=== PATIENT | male | born 1955 | race Caucasian/White ===

== ENCOUNTER 2017-10-04 00:58 | Inpatient (IN) ==
[2017-10-04] MEDS ORDERED: TISSUE ADHESIVE 1 EACH APPLICATOR TOP ONE (01:22)
[2017-10-04] MEDS ORDERED: DIPH/TET/ACEL PERT BOOSTER VACCINE 0.5 ML VIAL IM ONE (01:58)
[2017-10-04] MEDS ORDERED: ceFAZolin 1,000 MG VIAL IM ONE (01:59)
[2017-10-04] MEDS ORDERED: HALOPERIDOL 5 MG/ML AMP ONE ×2 (06:04)
[2017-10-04] MEDS ORDERED: GLUCAGON 1 MG VIAL ONE (06:06)
[2017-10-04] MEDS ORDERED: DEXTROSE 50% 25 GM/50 ML SYRINGE IV ONE (06:08)
[2017-10-04 06:47] LABS: INR 1.3; PT Patient Result 13.1 SECS
[2017-10-04] MEDS ORDERED: ETOMIDATE 20 MG/10 ML VIAL IV ONE (06:47)
[2017-10-04] MEDS ORDERED: VECURONIUM 10 MG VIAL IV ONE (06:47)
[2017-10-04 06:50] LABS: Ammonia 57 UMOL/L (11-32)
[2017-10-04 06:54] LABS: Lactic Acid 2.9 MMOL/L (0.4-2.0)
[2017-10-04 06:57] LABS: Alanine Aminotransferase 16 U/L (16-61); Albumin 3.3 G/DL (3.4-5.0); Alkaline Phosphatase 30 U/L (45-117); Aspartate Amino Transferase 23 U/L (0-37); Blood Urea Nitrogen 27 MG/DL (7-18); Calcium 9.2 MG/DL (8.5-10.1); Osmolality,Calculated 273.8 MOS/KG (273-304); Potassium 5.5 MMOL/L (3.5-5.1); Sodium 137 MMOL/L (136-145); Total Protein 7.3 G/DL (6.4-8.3)
[2017-10-04 06:59] LABS: Glucose 28 MG/DL (74-106)
[2017-10-04 07:03] LABS: Basophils # 0.1 10*3/uL (0.0-0.2); Basophils % 0.5 % (0.0-0.8); Eosinophils # 0.1 10*3/uL (0.0-0.87); Eosinophils % 0.8 % (0.00-10.9); Hematocrit 41.2 VOL% (42.0-52.0); Hemoglobin 13.5 GM/DL (14.0-18.0); Immature Granulocytes % 1.5 %; Immature Granulocytes Absolute 0.18 #; Lymphocytes # 0.7 10*3/uL (1.4-4.0); Lymphocytes % 6.1 % (21.2-54.2); Mean Corpuscular HGB Conc 32.8 GM/DL (32-36); Mean Corpuscular Hemoglobin 28 PG (27-34); Mean Corpuscular Volume 84.4 FL (87-102); Mean Platelet Volume 9.6 FL (9.6-12.0); Monocytes # 1.3 10*3/uL (0.11-0.8); Neutrophils # 9.7 10*3/uL (1.4-7.4); Neutrophils % 80.1 % (38.7-73.9); Platelet Count 384 T/CUMM (130-400); Red Blood Count 4.88 MC/CUMM (3.8-5.5); Red Cell Distribution Width 14.7 % (9.3-17.3); White Blood Count 12.1 T/CUMM (4-12)
[2017-10-04] MEDS ORDERED: PROPOFOL 1,000 MG/100 ML BOTTLE IV ONE (07:21)
[2017-10-04] MEDS ORDERED: ROCURONIUM 100 MG/10 ML VIAL IV ONE (07:22)
[2017-10-04] MEDS ORDERED: SODIUM CHLORIDE 0.9% 500 ML IV STA (07:25)
[2017-10-04] MEDS ORDERED: ROCURONIUM 100 MG/10 ML VIAL IV STA ×2 (07:25→11:38)
[2017-10-04] MEDS: PROPOFOL 1,000 MG/100 ML BOTTLE IV SCH (07:28)
[2017-10-04 07:35] LABS: Allen Test Positive; Pt O2 Delivery Device Ventilator
[2017-10-04 07:37] LABS: ABG Base Excess -1.2 MMOL/L (-2.5-2.5); ABG HCO3 23.4 MMOL/L (20-26); ABG PCO2 53.9 MM HG (35-48); ABG PH 7.298 (7.35-7.45); ABG TCO2 23.2 MMOL/L (23-27)
[2017-10-04 08:21] LABS: Apearance,Urine Slightly Hazy (Clear); Bilirubin,Urine Negative (Negative); Blood, Urine Negative (Negative); Glucose,Urine (UA) 50 mg/dL (Negative); Ketones,Urine Negative (Negative); Mucus,Urine Occasional /LPF (Occasional); Nitrite,Urine Negative (Negative); Protein,Urine 100 MG/DL; RBC,Urine 1 /HPF (0-4); Squamous Epithelial Cell,Urine Occasional /HPF (0-10); Urine Color Yellow (Yellow); Urine Specific Gravity 1.016 (1.001-1.035); WBC,Urine 1 /HPF (0-6)
[2017-10-04 08:33] LABS: Prolactin 64.3 NG/ML
[2017-10-04] MEDS ORDERED: SODIUM CHLORIDE 0.9% 1,000 ML IV STA (10:22)
[2017-10-04] MEDS ORDERED: ONDANSETRON 4 MG/2 ML VIAL IV PRN (10:53)
[2017-10-04] MEDS ORDERED: CARVEDILOL 25 MG TABLET PO SCH (11:00)
[2017-10-04] MEDS ORDERED: SODIUM CHLORIDE 0.9% 1,000 ML IV SCH (11:00)
[2017-10-04] MEDS ORDERED: GLUCAGON 1 MG VIAL IM PRN (11:20)
[2017-10-04] MEDS ORDERED: fentaNYL 100 MCG/2 ML VIAL ONE (11:37)
[2017-10-04] MEDS ORDERED: fentaNYL 100 MCG/2 ML VIAL IV STA (11:38)
[2017-10-04] MEDS: ISOSORBIDE MONONITRATE 30 MG TABLET PO SCH (12:41)
[2017-10-04] MEDS: INSULIN LISPRO 100 UNIT/ML SUBCUT SCH ×4 (13:08→23:57)
[2017-10-04] MEDS: PANTOPRAZOLE 40 MG VIAL IV SCH (13:28)
[2017-10-04] MEDS: SPIRONOLACTONE 25 MG TABLET PO SCH (13:28)
[2017-10-04] MEDS: PHENYLEPHRINE DRIP 40 MG/250 ML PREMIX IV PRN ×2 (14:13→21:10)
[2017-10-04] MEDS ORDERED: MIDAZOLAM 100 MG in SODIUM CHLORIDE 0.9% 80 ML IV PRN (14:34)
[2017-10-04 14:45] LABS: ABG Base Excess 4.8 MMOL/L (-2.5-2.5); ABG HCO3 28.8 MMOL/L (20-26); ABG Oxygen Saturation 98.1 % (95-100); ABG PCO2 44.9 MM HG (35-48); ABG PH 7.431 (7.35-7.45); ABG TCO2 26.5 MMOL/L (23-27)
[2017-10-04] MEDS: METHYLDOPA 250 MG TABLET PO SCH ×2 (15:15→20:49)
[2017-10-04 15:32] LABS: Barbiturates Screen,Urine Negative (Negative); Benzodiazepines Screen,Urine Negative (Negative); Cannabinoid Screen,Urine Negative (Negative); Opiate Screen,Urine Negative (Negative); Phencyclidine Screen,Urine Negative (Negative)
[2017-10-04] MEDS: DEXTROSE 50% 25 GM/50 ML VIAL IV PRN ×2 (16:45→23:58)
[2017-10-04] MEDS: DEXTROSE 5% NACL 0.9% 1,000 ML IV SCH (16:58)
[2017-10-04] MEDS: FUROSEMIDE 20 MG TABLET PO SCH (17:16)
[2017-10-04] MEDS: ASPIRIN CHEW 81 MG TABLET PO SCH (18:54)
[2017-10-04] MEDS ORDERED: ENOXAPARIN 40 MG/0.4 ML SYRINGE SUBCUT SCH (21:00)
[2017-10-05] MEDS: DEXTROSE 5% NACL 0.9% 1,000 ML IV SCH ×4 (00:57→20:50)
[2017-10-05] MEDS: PROPOFOL 1,000 MG/100 ML BOTTLE IV SCH ×4 (01:58→23:10)
[2017-10-05 03:53] LABS: Basophils # 0.1 10*3/uL (0.0-0.2); Basophils % 0.5 % (0.0-0.8); Eosinophils # 0.1 10*3/uL (0.0-0.87); Hematocrit 36.5 VOL% (42.0-52.0); Hemoglobin 11.6 GM/DL (14.0-18.0); Immature Granulocytes % 0.5 %; Immature Granulocytes Absolute 0.06 #; Lymphocytes # 1.3 10*3/uL (1.4-4.0); Lymphocytes % 10.6 % (21.2-54.2); Mean Corpuscular HGB Conc 31.8 GM/DL (32-36); Mean Corpuscular Hemoglobin 27 PG (27-34); Mean Corpuscular Volume 86.1 FL (87-102); Mean Platelet Volume 9.5 FL (9.6-12.0); Monocytes # 1.4 10*3/uL (0.11-0.8); Neutrophils # 9.1 10*3/uL (1.4-7.4); Neutrophils % 75.4 % (38.7-73.9); Platelet Count 375 T/CUMM (130-400); Red Blood Count 4.24 MC/CUMM (3.8-5.5)
[2017-10-05 04:14] LABS: Albumin 2.9 G/DL (3.4-5.0); Bilirubin,Total 0.9 MG/DL (0.2-1.0); Calcium 7.9 MG/DL (8.5-10.1); Osmolality,Calculated 286.1 MOS/KG (273-304); Potassium 3.9 MMOL/L (3.5-5.1); Risk Ratio 4.25; Thyroid Stimulating Hormone 6.98 uIU/ml (0.358-3.74); Total Protein 5.5 G/DL (6.4-8.3); VLDL CHOLESTEROL 28.2 MG/DL
[2017-10-05 04:39] LABS: ABG Base Excess 3.2 MMOL/L (-2.5-2.5); ABG HCO3 27.3 MMOL/L (20-26); ABG Oxygen Saturation 99.3 % (95-100); ABG PCO2 39.8 MM HG (35-48); ABG PH 7.446 (7.35-7.45); ABG TCO2 24.1 MMOL/L (23-27); Allen Test Positive; Pt O2 Delivery Device Ventilator
[2017-10-05] MEDS: INSULIN LISPRO 100 UNIT/ML SUBCUT SCH ×5 (05:57→20:50)
[2017-10-05] MEDS: PANTOPRAZOLE 40 MG VIAL IV SCH (08:53)
[2017-10-05] MEDS: SPIRONOLACTONE 25 MG TABLET PO SCH (08:53)
[2017-10-05] MEDS: ASPIRIN CHEW 81 MG TABLET PO SCH (08:53)
[2017-10-05] MEDS: METHYLDOPA 250 MG TABLET PO SCH ×3 (08:53→20:51)
[2017-10-05] MEDS: methylPREDNISolone SOD SUC 40 MG/1 ML VIAL IV SCH ×2 (09:02→20:50)
[2017-10-05] MEDS: FUROSEMIDE 20 MG TABLET PO SCH (09:02)
[2017-10-05] MEDS: ISOSORBIDE MONONITRATE 30 MG TABLET PO SCH (09:03)
[2017-10-05] MEDS: FUROSEMIDE 40 MG/4 ML VIAL IV SCH (09:09)
[2017-10-05] MEDS: PHENYLEPHRINE DRIP 40 MG/250 ML PREMIX IV PRN (13:49)
[2017-10-05] MEDS ORDERED: ACETAMINOPHEN 325 MG TABLET PO PRN (13:53)
[2017-10-05] MEDS ORDERED: ACETAMINOPHEN 325 MG TABLET ONE (13:55)
[2017-10-05] MEDS: SKIN HEALING OINT (AQUAPHOR) 50 GM TUBE TOP PRN (14:15)
[2017-10-05] MEDS ORDERED: POTASSIUM CHLORIDE RIDER 20 MEQ in PREMIX 1 EACH IV PRN (17:19)
[2017-10-05] MEDS ORDERED: MAGNESIUM SULF RIDER 4 GM in PREMIX 1 EACH IV PRN (17:20)
[2017-10-05] MEDS ORDERED: MAGNESIUM SULF RIDER 2 GM in PREMIX 1 EACH IV PRN (17:20)
[2017-10-05] MEDS: APIXABAN 5 MG TABLET PO SCH ×2 (17:36→20:50)
[2017-10-05 18:09] LABS: Calcium 7.9 MG/DL (8.5-10.1); Osmolality,Calculated 293.1 MOS/KG (273-304); Potassium 3.9 MMOL/L (3.5-5.1)
[2017-10-06] MEDS: INSULIN LISPRO 100 UNIT/ML SUBCUT SCH ×6 (00:40→20:19)
[2017-10-06] MEDS: DEXTROSE 5% NACL 0.9% 1,000 ML IV SCH ×2 (02:22→12:54)
[2017-10-06 04:35] LABS: ABG Base Excess 0.6 MMOL/L (-2.5-2.5); ABG Oxygen Saturation 98.6 % (95-100); ABG PCO2 34.3 MM HG (35-48); ABG PH 7.462 (7.35-7.45); ABG PO2 140.8 MM HG (80-95)
[2017-10-06 05:03] LABS: Basophils % 0.1 % (0.0-0.8); Hematocrit 38.9 VOL% (42.0-52.0); Hemoglobin 12.1 GM/DL (14.0-18.0); Immature Granulocytes % 0.6 %; Immature Granulocytes Absolute 0.05 #; Lymphocytes # 0.7 10*3/uL (1.4-4.0); Lymphocytes % 8.2 % (21.2-54.2); Mean Corpuscular HGB Conc 31.1 GM/DL (32-36); Mean Corpuscular Hemoglobin 27 PG (27-34); Mean Corpuscular Volume 86.6 FL (87-102); Mean Platelet Volume 9.4 FL (9.6-12.0); Monocytes # 0.6 10*3/uL (0.11-0.8); Monocytes % 7.2 % (1.7-12.7); Neutrophils # 6.9 10*3/uL (1.4-7.4); Neutrophils % 83.9 % (38.7-73.9); Platelet Count 254 T/CUMM (130-400); Red Blood Count 4.49 MC/CUMM (3.8-5.5); White Blood Count 8.3 T/CUMM (4-12)
[2017-10-06] MEDS: PROPOFOL 1,000 MG/100 ML BOTTLE IV SCH ×3 (05:20→18:55)
[2017-10-06 05:55] LABS: Calcium 8.5 MG/DL (8.5-10.1)
[2017-10-06 05:56] LABS: Potassium 3.9 MMOL/L (3.5-5.1)
[2017-10-06] MEDS: PHENYLEPHRINE DRIP 40 MG/250 ML PREMIX IV PRN (06:20)
[2017-10-06] MEDS: POTASSIUM CHLORIDE RIDER 10 MEQ in PREMIX 1 EACH IV PRN ×2 (07:50→08:53)
[2017-10-06] MEDS ORDERED: FUROSEMIDE 20 MG/2 ML VIAL ONE (08:08)
[2017-10-06] MEDS: methylPREDNISolone SOD SUC 40 MG/1 ML VIAL IV SCH ×2 (08:14→20:19)
[2017-10-06] MEDS: PANTOPRAZOLE 40 MG VIAL IV SCH (08:14)
[2017-10-06] MEDS: ASPIRIN CHEW 81 MG TABLET PO SCH (08:15)
[2017-10-06] MEDS: APIXABAN 5 MG TABLET PO SCH ×2 (08:15→20:19)
[2017-10-06] MEDS: FUROSEMIDE 40 MG/4 ML VIAL IV SCH (08:15)
[2017-10-06] MEDS: SKIN HEALING OINT (AQUAPHOR) 50 GM TUBE TOP PRN (08:15)
[2017-10-06] MEDS: SPIRONOLACTONE 25 MG TABLET PO SCH (08:15)
[2017-10-06] MEDS: METHYLDOPA 250 MG TABLET PO SCH ×3 (08:15→22:24)
[2017-10-07] MEDS: INSULIN LISPRO 100 UNIT/ML SUBCUT SCH ×6 (00:34→19:56)
[2017-10-07] MEDS: PROPOFOL 1,000 MG/100 ML BOTTLE IV SCH ×5 (01:35→23:50)
[2017-10-07 03:31] LABS: ABG Base Excess 2.3 MMOL/L (-2.5-2.5); ABG HCO3 26.3 MMOL/L (20-26); ABG Oxygen Saturation 94.4 % (95-100); ABG PCO2 38.3 MM HG (35-48); ABG PH 7.445 (7.35-7.45); ABG PO2 70.4 MM HG (80-95); ABG TCO2 23.2 MMOL/L (23-27)
[2017-10-07 04:41] LABS: Hematocrit 36.6 VOL% (42.0-52.0); Hemoglobin 11.8 GM/DL (14.0-18.0); Immature Granulocytes % 0.9 %; Immature Granulocytes Absolute 0.08 #; Lymphocytes # 0.6 10*3/uL (1.4-4.0); Lymphocytes % 6.8 % (21.2-54.2); Mean Corpuscular HGB Conc 32.2 GM/DL (32-36); Mean Corpuscular Hemoglobin 27 PG (27-34); Mean Corpuscular Volume 84.3 FL (87-102); Mean Platelet Volume 9.7 FL (9.6-12.0); Monocytes # 0.4 10*3/uL (0.11-0.8); Monocytes % 4.9 % (1.7-12.7); Neutrophils # 7.8 10*3/uL (1.4-7.4); Neutrophils % 87.4 % (38.7-73.9); Platelet Count 275 T/CUMM (130-400); Red Blood Count 4.34 MC/CUMM (3.8-5.5); Red Cell Distribution Width 15.1 % (9.3-17.3)
[2017-10-07 05:19] LABS: Calcium 8.8 MG/DL (8.5-10.1); Potassium 4.8 MMOL/L (3.5-5.1)
[2017-10-07 05:48] LABS: Prealbumin 11.9 MG/DL (20-40)
[2017-10-07] MEDS: PANTOPRAZOLE 40 MG VIAL IV SCH (08:44)
[2017-10-07] MEDS: FUROSEMIDE 40 MG/4 ML VIAL IV SCH ×2 (08:44→16:11)
[2017-10-07] MEDS: methylPREDNISolone SOD SUC 40 MG/1 ML VIAL IV SCH ×2 (08:44→20:20)
[2017-10-07] MEDS: APIXABAN 5 MG TABLET PO SCH ×2 (08:45→20:20)
[2017-10-07] MEDS: METHYLDOPA 250 MG TABLET PO SCH ×3 (08:45→20:20)
[2017-10-07] MEDS: SPIRONOLACTONE 25 MG TABLET PO SCH (08:45)
[2017-10-07] MEDS: ASPIRIN CHEW 81 MG TABLET PO SCH (08:45)
[2017-10-07] MEDS: SKIN HEALING OINT (AQUAPHOR) 50 GM TUBE TOP PRN (08:52)
[2017-10-07] MEDS: OXACILLIN 500 MG in SODIUM CHLORIDE 0.9% 100 ML IV SCH ×2 (17:26→22:21)
[2017-10-08] MEDS: INSULIN LISPRO 100 UNIT/ML SUBCUT SCH ×7 (00:45→23:53)
[2017-10-08 03:16] LABS: ABG Base Excess 6.5 MMOL/L (-2.5-2.5); ABG HCO3 29.6 MMOL/L (20-26); ABG PCO2 37.2 MM HG (35-48); ABG PH 7.519 (7.35-7.45); ABG PO2 172.2 MM HG (80-95); ABG TCO2 30.8 MMOL/L (23-27); Allen Test Positive; Pt O2 Delivery Device Ventilator
[2017-10-08] MEDS: PROPOFOL 1,000 MG/100 ML BOTTLE IV SCH ×4 (04:27→23:15)
[2017-10-08] MEDS: OXACILLIN 500 MG in SODIUM CHLORIDE 0.9% 100 ML IV SCH ×4 (04:29→23:52)
[2017-10-08 06:00] LABS: Basophils % 0.2 % (0.0-0.8); Hematocrit 36.6 VOL% (42.0-52.0); Hemoglobin 11.9 GM/DL (14.0-18.0); Immature Granulocytes % 0.9 %; Immature Granulocytes Absolute 0.07 #; Lymphocytes # 0.9 10*3/uL (1.4-4.0); Mean Corpuscular HGB Conc 32.5 GM/DL (32-36); Mean Corpuscular Hemoglobin 27 PG (27-34); Mean Corpuscular Volume 83.6 FL (87-102); Mean Platelet Volume 9.6 FL (9.6-12.0); Monocytes # 0.5 10*3/uL (0.11-0.8); Monocytes % 6.2 % (1.7-12.7); Neutrophils # 6.7 10*3/uL (1.4-7.4); Neutrophils % 81.7 % (38.7-73.9); Platelet Count 279 T/CUMM (130-400); Red Blood Count 4.38 MC/CUMM (3.8-5.5); White Blood Count 8.2 T/CUMM (4-12)
[2017-10-08 06:29] LABS: Albumin 2.8 G/DL (3.4-5.0); Bilirubin,Total 0.9 MG/DL (0.2-1.0); Calcium 8.7 MG/DL (8.5-10.1); Osmolality,Calculated 296.1 MOS/KG (273-304); Potassium 4.3 MMOL/L (3.5-5.1); Total Protein 6.1 G/DL (6.4-8.3)
[2017-10-08] MEDS: PANTOPRAZOLE 40 MG VIAL IV SCH (08:45)
[2017-10-08] MEDS: methylPREDNISolone SOD SUC 40 MG/1 ML VIAL IV SCH ×2 (08:45→21:58)
[2017-10-08] MEDS: FUROSEMIDE 40 MG/4 ML VIAL IV SCH ×2 (08:45→15:49)
[2017-10-08] MEDS: APIXABAN 5 MG TABLET PO SCH ×2 (08:46→21:57)
[2017-10-08] MEDS: SPIRONOLACTONE 25 MG TABLET PO SCH (08:46)
[2017-10-08] MEDS: METHYLDOPA 250 MG TABLET PO SCH ×3 (08:46→21:57)
[2017-10-08] MEDS: ASPIRIN CHEW 81 MG TABLET PO SCH (08:46)
[2017-10-09 03:54] LABS: ABG Base Excess 7.5 MMOL/L (-2.5-2.5); ABG HCO3 31.2 MMOL/L (20-26); ABG Oxygen Saturation 97.6 % (95-100); ABG PCO2 50.2 MM HG (35-48); ABG PO2 98.7 MM HG (80-95); ABG TCO2 29.2 MMOL/L (23-27)
[2017-10-09] MEDS: PROPOFOL 1,000 MG/100 ML BOTTLE IV SCH ×2 (04:00→09:36)
[2017-10-09 04:04] LABS: Basophils % 0.4 % (0.0-0.8); Eosinophils # 0.1 10*3/uL (0.0-0.87); Eosinophils % 0.5 % (0.00-10.9); Hematocrit 39.8 VOL% (42.0-52.0); Hemoglobin 12.4 GM/DL (14.0-18.0); Lymphocytes # 0.6 10*3/uL (1.4-4.0); Mean Corpuscular HGB Conc 31.2 GM/DL (32-36); Mean Corpuscular Hemoglobin 27 PG (27-34); Mean Corpuscular Volume 86.3 FL (87-102); Mean Platelet Volume 9.2 FL (9.6-12.0); Monocytes # 0.5 10*3/uL (0.11-0.8); Neutrophils # 9.1 10*3/uL (1.4-7.4); Neutrophils % 87.1 % (38.7-73.9); Platelet Count 257 T/CUMM (130-400); Red Blood Count 4.61 MC/CUMM (3.8-5.5); Red Cell Distribution Width 14.9 % (9.3-17.3); White Blood Count 10.4 T/CUMM (4-12)
[2017-10-09 04:33] LABS: Calcium 8.7 MG/DL (8.5-10.1); Osmolality,Calculated 291.5 MOS/KG (273-304); Potassium 4.5 MMOL/L (3.5-5.1)
[2017-10-09] MEDS: INSULIN LISPRO 100 UNIT/ML SUBCUT SCH ×6 (04:59→23:57)
[2017-10-09] MEDS: OXACILLIN 500 MG in SODIUM CHLORIDE 0.9% 100 ML IV SCH ×4 (05:01→23:55)
[2017-10-09] MEDS: FUROSEMIDE 40 MG/4 ML VIAL IV SCH ×2 (08:58→17:08)
[2017-10-09] MEDS: methylPREDNISolone SOD SUC 40 MG/1 ML VIAL IV SCH ×2 (08:58→20:07)
[2017-10-09] MEDS: METHYLDOPA 250 MG TABLET PO SCH ×3 (08:58→20:08)
[2017-10-09] MEDS: APIXABAN 5 MG TABLET PO SCH ×2 (08:58→20:08)
[2017-10-09] MEDS: PANTOPRAZOLE 40 MG VIAL IV SCH (08:59)
[2017-10-09] MEDS: SPIRONOLACTONE 25 MG TABLET PO SCH (08:59)
[2017-10-09] MEDS: ASPIRIN CHEW 81 MG TABLET PO SCH (08:59)
[2017-10-09] MEDS: FUROSEMIDE 20 MG TABLET PO SCH (09:35)
[2017-10-09] MEDS: CARVEDILOL 25 MG TABLET PO SCH (20:08)
[2017-10-09] MEDS: ASCORBIC ACID 500 MG TABLET PO SCH (20:08)
[2017-10-10] MEDS: OXACILLIN 500 MG in SODIUM CHLORIDE 0.9% 100 ML IV SCH ×4 (04:09→23:47)
[2017-10-10] MEDS: INSULIN LISPRO 100 UNIT/ML SUBCUT SCH ×5 (04:10→21:20)
[2017-10-10 04:19] LABS: Basophils % 0.3 % (0.0-0.8); Eosinophils % 0.2 % (0.00-10.9); Hematocrit 39.5 VOL% (42.0-52.0); Hemoglobin 12.7 GM/DL (14.0-18.0); Immature Granulocytes % 1.6 %; Immature Granulocytes Absolute 0.18 #; Lymphocytes # 0.7 10*3/uL (1.4-4.0); Lymphocytes % 6.2 % (21.2-54.2); Mean Corpuscular HGB Conc 32.2 GM/DL (32-36); Mean Corpuscular Hemoglobin 27 PG (27-34); Mean Platelet Volume 9.6 FL (9.6-12.0); Monocytes # 0.6 10*3/uL (0.11-0.8); Monocytes % 4.9 % (1.7-12.7); Neutrophils % 86.8 % (38.7-73.9); Platelet Count 273 T/CUMM (130-400); Red Cell Distribution Width 14.6 % (9.3-17.3); White Blood Count 11.5 T/CUMM (4-12)
[2017-10-10 04:40] LABS: Osmolality,Calculated 289.4 MOS/KG (273-304); Potassium 4.5 MMOL/L (3.5-5.1)
[2017-10-10] MEDS: ASCORBIC ACID 500 MG TABLET PO SCH ×2 (08:14→21:19)
[2017-10-10] MEDS: ASPIRIN CHEW 81 MG TABLET PO SCH (08:14)
[2017-10-10] MEDS: GLIMEPIRIDE 4 MG TABLET PO SCH (08:14)
[2017-10-10] MEDS: METHYLDOPA 250 MG TABLET PO SCH ×3 (08:14→21:19)
[2017-10-10] MEDS: APIXABAN 5 MG TABLET PO SCH ×2 (08:14→21:19)
[2017-10-10] MEDS: SPIRONOLACTONE 25 MG TABLET PO SCH (08:14)
[2017-10-10] MEDS: CARVEDILOL 25 MG TABLET PO SCH ×2 (08:14→21:19)
[2017-10-10] MEDS: CYANOCOBALAMIN 500 MCG TABLET PO SCH (08:14)
[2017-10-10] MEDS: CHOLECALCIFEROL 1,000 UNIT TABLET PO SCH (08:15)
[2017-10-10] MEDS: PANTOPRAZOLE 40 MG VIAL IV SCH (08:15)
[2017-10-10] MEDS: methylPREDNISolone SOD SUC 40 MG/1 ML VIAL IV SCH ×2 (08:15→21:19)
[2017-10-10] MEDS: FENOFIBRATE 160 MG TABLET PO SCH (08:21)
[2017-10-10] MEDS: FUROSEMIDE 40 MG/4 ML VIAL IV SCH ×2 (09:28→15:41)
[2017-10-11] MEDS: INSULIN LISPRO 100 UNIT/ML SUBCUT SCH ×6 (01:50→21:56)
[2017-10-11] MEDS: OXACILLIN 500 MG in SODIUM CHLORIDE 0.9% 100 ML IV SCH ×3 (05:37→16:47)
[2017-10-11 05:51] LABS: Calcium 8.8 MG/DL (8.5-10.1); Osmolality,Calculated 289.5 MOS/KG (273-304); Potassium 4.3 MMOL/L (3.5-5.1)
[2017-10-11] MEDS: PANTOPRAZOLE 40 MG VIAL IV SCH (09:44)
[2017-10-11] MEDS: FUROSEMIDE 40 MG/4 ML VIAL IV SCH ×3 (09:45→21:55)
[2017-10-11] MEDS: methylPREDNISolone SOD SUC 40 MG/1 ML VIAL IV SCH ×2 (09:46→21:56)
[2017-10-11] MEDS: FENOFIBRATE 160 MG TABLET PO SCH (09:47)
[2017-10-11] MEDS: CHOLECALCIFEROL 1,000 UNIT TABLET PO SCH (09:47)
[2017-10-11] MEDS: ASPIRIN CHEW 81 MG TABLET PO SCH (09:47)
[2017-10-11] MEDS: ASCORBIC ACID 500 MG TABLET PO SCH ×2 (09:47→21:57)
[2017-10-11] MEDS: SPIRONOLACTONE 25 MG TABLET PO SCH ×2 (09:48→21:57)
[2017-10-11] MEDS: CARVEDILOL 25 MG TABLET PO SCH ×2 (09:48→21:57)
[2017-10-11] MEDS: CYANOCOBALAMIN 500 MCG TABLET PO SCH (09:48)
[2017-10-11] MEDS: GLIMEPIRIDE 4 MG TABLET PO SCH (09:48)
[2017-10-11] MEDS: METHYLDOPA 250 MG TABLET PO SCH ×3 (09:48→21:57)
[2017-10-11] MEDS: APIXABAN 5 MG TABLET PO SCH ×2 (09:48→21:57)
[2017-10-12] MEDS: INSULIN LISPRO 100 UNIT/ML SUBCUT SCH ×6 (01:25→20:19)
[2017-10-12] MEDS: OXACILLIN 500 MG in SODIUM CHLORIDE 0.9% 100 ML IV SCH ×5 (01:46→22:39)
[2017-10-12] MEDS: FUROSEMIDE 40 MG/4 ML VIAL IV SCH ×3 (09:32→20:19)
[2017-10-12] MEDS: CYANOCOBALAMIN 500 MCG TABLET PO SCH (09:33)
[2017-10-12] MEDS: PANTOPRAZOLE 40 MG VIAL IV SCH (09:33)
[2017-10-12] MEDS: methylPREDNISolone SOD SUC 40 MG/1 ML VIAL IV SCH ×2 (09:33→20:19)
[2017-10-12] MEDS: ASCORBIC ACID 500 MG TABLET PO SCH ×2 (09:34→20:18)
[2017-10-12] MEDS: APIXABAN 5 MG TABLET PO SCH ×2 (09:34→20:19)
[2017-10-12] MEDS: SPIRONOLACTONE 25 MG TABLET PO SCH ×2 (09:34→20:19)
[2017-10-12] MEDS: ASPIRIN CHEW 81 MG TABLET PO SCH (09:34)
[2017-10-12] MEDS: CHOLECALCIFEROL 1,000 UNIT TABLET PO SCH (09:34)
[2017-10-12] MEDS: FENOFIBRATE 160 MG TABLET PO SCH (09:34)
[2017-10-12] MEDS: LOSARTAN 50 MG TABLET PO SCH (09:34)
[2017-10-12] MEDS: GLIMEPIRIDE 4 MG TABLET PO SCH (09:34)
[2017-10-12] MEDS: METHYLDOPA 250 MG TABLET PO SCH ×3 (09:35→20:19)
[2017-10-12] MEDS: CARVEDILOL 25 MG TABLET PO SCH ×2 (09:35→20:19)
[2017-10-13] MEDS: INSULIN LISPRO 100 UNIT/ML SUBCUT SCH ×3 (00:26→09:35)
[2017-10-13] MEDS: OXACILLIN 500 MG in SODIUM CHLORIDE 0.9% 100 ML IV SCH ×2 (05:56→12:39)
[2017-10-13] MEDS: APIXABAN 5 MG TABLET PO SCH (09:33)
[2017-10-13] MEDS: CARVEDILOL 25 MG TABLET PO SCH (09:33)
[2017-10-13] MEDS: LOSARTAN 50 MG TABLET PO SCH (09:34)
[2017-10-13] MEDS: CHOLECALCIFEROL 1,000 UNIT TABLET PO SCH (09:34)
[2017-10-13] MEDS: PANTOPRAZOLE 40 MG VIAL IV SCH (09:34)
[2017-10-13] MEDS: FUROSEMIDE 40 MG/4 ML VIAL IV SCH (09:34)
[2017-10-13] MEDS: CYANOCOBALAMIN 500 MCG TABLET PO SCH (09:34)
[2017-10-13] MEDS: ASCORBIC ACID 500 MG TABLET PO SCH (09:34)
[2017-10-13] MEDS: SPIRONOLACTONE 25 MG TABLET PO SCH (09:34)
[2017-10-13] MEDS: METHYLDOPA 250 MG TABLET PO SCH (09:34)
[2017-10-13] MEDS: ASPIRIN CHEW 81 MG TABLET PO SCH (09:34)
[2017-10-13] MEDS: GLIMEPIRIDE 4 MG TABLET PO SCH (09:35)
[2017-10-13] MEDS: methylPREDNISolone SOD SUC 40 MG/1 ML VIAL IV SCH (09:35)
[2017-10-13] MEDS: FENOFIBRATE 160 MG TABLET PO SCH (10:02)
[2017-10-13 11:51] VITALS: BP 124/64
== END 2017-10-13 14:00 | disposition home health service (06) | DRG 637 ==
LOC: EDUNIT# → EDBD → N.ED 00:58 → SUATTDRO 10:53 → N.EDINP 10:53 → N.ICU 11:35 → N.TELEN 10-10 13:32
PROVIDERS: ADMIT Internal Medicine; ATTEND Internal Medicine
PROC: IRTHORA (2017-10-04 09:25)